=== PATIENT | female | born 1950 | race African-American/Black ===

== ENCOUNTER → 2017-06-30 | Outpatient (CLI) | payer OTHER ==
[2015-11-25 18:13] VITALS: BP 135/86
--- NOTE | 2017-06-30 16:03 | RAD ---
DATE: June 30, 2017 EXAM: DIGITAL SCREEN BILAT W/CAD HISTORY: Routine screening. COMPARISON: June 27, 2016. April 10, 2015. June 07, 2014. TECHNIQUE: 2D digital CC and MLO views of each breast were obtained. There is a repeat left MLO view. This study was interpreted with the benefit of Computerized Aided Detection (CAD). FINDINGS: The breast parenchyma is heterogeneously dense, category C, which may obscure small masses. There is an asymmetry in the outer left breast measuring 9 mm in size 5 cm from the nipple. This is a change from prior's. It has no definite correlate on the MLO views. There are a few scattered benign-appearing calcifications. Intraparenchymal lymph node in the upper outer right breast is stable. IMPRESSION: Asymmetry in the left breast for which compression view and ML view would be recommended. If the finding persists, rolled views or ultrasound may be required. BI-RADS CATEGORY: 0 INCOMPLETE: NEEDS ADDITIONAL IMAGING EVALUATION/COMPARISON WITH PRIOR STUDIES RECOMMENDED FOLLOW-UP: ADD ADDITIONAL IMAGING PQRS compliance statement: Patient information was entered into a reminder system with a target due date for the next mammogram. Mammography is a sensitive method for finding small breast cancers, but it does not detect them all and is not a substitute for careful clinical examination. A negative mammogram does not negate a clinically suspicious finding and should not result in delay in biopsying a clinically suspicious abnormality. "Our facility is accredited by the [employer] Mammography Program."
== END | disposition home or self-care (01) ==
LOC: MAMMO 14:12
PROVIDERS: ATTEND Internal Medicine Rheumatology
DX: Z12.31 Encounter for screening mammogram for malignant neoplasm of breast (principal)
CPT/HCPCS: G0202; 77067

== ENCOUNTER → 2017-07-01 | Outpatient (CLI) | payer OTHER ==
[2015-11-25 18:13] VITALS: BP 135/86
--- NOTE | 2017-07-01 14:57 | RAD ---
DATE: 07/01/2017 EXAM: DIGITAL DIAGNOSTIC LT, BREAST LEFT HISTORY: Suspicious screening study COMPARISON: 06/30/2017 This study was interpreted with the benefit of Computerized Aided Detection (CAD). The breast parenchyma is heterogeneously dense, which could reduce sensitivity of mammography. Breast parenchyma level C. FINDINGS: The screening study demonstrated a suspicious density laterally in the left breast on only the cc view. Spot compression views of that region in the CC projection fail to demonstrate a discrete nodule. The appearance on one view of the screening exam was likely due to to a summation of vascular and fibroglandular shadows. No mass is identified on the current straight mediolateral view. Left breast ultrasound, 06/30/2017: A targeted ultrasound exam of the lateral aspect of the left breast was performed. Heterogeneous fibroglandular shadows are present. No discrete breast mass is seen laterally. In the center of the breast in the retroareolar region not was made of a small oval-shaped hypoechoic nodule measuring 6.6 x 4.7 x 3.5 mm. Its margins are smooth. There are heterogeneous low level internal echoes. No internal color flow is seen. No definite posterior acoustic enhancement or shadowing is seen. This probably represents a small fibroadenoma or complicated cyst. No definite mammographic correlate is seen. IMPRESSION: 1. Additional views of the lateral left breast did not demonstrate a discrete mass. The appearance on the screening mammograms was probably a summation artifact. 2. The targeted ultrasound exam did demonstrate a tiny, probably benign retroareolar nodule near the midline. Follow-up left breast ultrasound in 6 months is suggested to establish stability. BI-RADS CATEGORY: 3 PROBABLY BENIGN FINDING(S)-SHORT INTERVAL FOLLOW-UP SUGGESTED RECOMMENDED FOLLOW-UP: 6M 6 MONTH FOLLOW-UP PQRS compliance statement: Patient information was entered into a reminder system with a target due date for the next mammogram. Mammography is a sensitive method for finding small breast cancers, but it does not detect them all and is not a substitute for careful clinical examination. A negative mammogram does not negate a clinically suspicious finding and should not result in delay in biopsying a clinically suspicious abnormality. "Our facility is accredited by the [employer] Mammography [employer]."
== END | disposition home or self-care (01) ==
LOC: MAMMO 13:19
PROVIDERS: ATTEND Family Medicine
DX: R92.8 Other abnormal and inconclusive findings on diagnostic imaging of breast (principal)
CPT/HCPCS: 76641; G0206; 77065

== ENCOUNTER → 2018-01-21 | Outpatient (CLI) | payer OTHER, MEDICARE | END | disposition home or self-care (01) | LOC: MAMMO 09:50 | DX: R92.8 Other abnormal and inconclusive findings on diagnostic imaging of breast (principal); I10 Essential (primary) hypertension | CPT/HCPCS: 76641 ==

== ENCOUNTER → 2018-11-29 | Outpatient (CLI) | payer MEDICARE, OTHER ==
[2015-11-25 18:13] VITALS: BP 135/86
--- NOTE | 2018-11-29 10:51 | RAD ---
DATE: 11/29/2018 EXAM: DIGITAL DIAGNOSTIC BILATERAL, BREAST LEFT HISTORY: Abnormal left breast ultrasound. COMPARISON: 06/07/2014, 06/27/2016, and 06/30/2017 mammographic exams. Limited left breast ultrasound exams 07/01/2017 and 01/21/2018. This study was interpreted with the benefit of Computerized Aided Detection (CAD). Breast Density: SCATTERED The breast parenchyma shows scattered fibroglandular densities. Breast parenchyma level B. FINDINGS: No new mass. No suspicious calcifications or distortion. Limited left breast ultrasound exam was performed. At the 6:00 retroareolar region, there is a well-circumscribed hypoechoic structure measuring 0.6 cm x 0.6 cm x 0.4 cm tall. This may represent a complex cyst. It is stable compared to prior exams. IMPRESSION: No new mammographic finding. Stable left breast ultrasound finding. Follow-up of the left breast ultrasound hypoechoic structure at the time of annual screening mammography in one year is recommended. BI-RADS CATEGORY: 3 PROBABLY BENIGN FINDING(S)-SHORT INTERVAL FOLLOW-UP SUGGESTED RECOMMENDED FOLLOW-UP: 12M 12 MONTH FOLLOW-UP PQRS compliance statement: Patient information was entered into a reminder system with a target due date in one year for the next mammogram. Mammography is a sensitive method for finding small breast cancers, but it does not detect them all and is not a substitute for careful clinical examination. A negative mammogram does not negate a clinically suspicious finding and should not result in delay in biopsying a clinically suspicious abnormality. "Our facility is accredited by the [employer] Mammography [employer]."
== END | disposition home or self-care (01) ==
LOC: MAMMO 09:01
PROVIDERS: ATTEND Family Medicine
DX: R92.8 Other abnormal and inconclusive findings on diagnostic imaging of breast (principal)
CPT/HCPCS: 76641; 77066

== ENCOUNTER → 2020-01-09 | Outpatient (CLI) | payer MEDICARE ==
[2015-11-25 18:13] VITALS: BP 135/86
--- NOTE | 2020-01-09 17:20 | RAD ---
DATE: 01/09/2020 8:01 AM EXAM: MAMMO CHARLES SCREENING BILATERAL, BREAST ultrasound LEFT HISTORY: Patient is due for bilateral mammographic screening but was recommended for short-term follow-up ultrasound of probably benign nodule in the left breast. COMPARISON: Bilateral mammograms of 11/29/2018, 06/30/2017 and 06/27/2016 along with a left diagnostic mammogram of 07/01/2017. Comparison also made to left breast ultrasounds of 11/29/2018 and 01/21/2018. TECHNIQUE: Bilateral CC and MLO views of the breasts were performed. Bilateral breast tomosynthesis was performed in CC and MLO projections. This study was interpreted with the benefit of Computerized Aided Detection (CAD). Targeted ultrasound of the inferior left breast was also performed as previously recommended. FINDINGS: Breast Density: SCATTERED The breast parenchyma shows scattered fibroglandular densities. Breast parenchyma level B Nodular parenchymal pattern with no dominant mass, architectural distortion or suspicious calcifications. Targeted ultrasound of the inferior left breast the area of previous sonographic interest reveals a sonographically benign parallel orientation oval hypoechoic 7 mm nodule with circumscribed margins and low-level internal echoes and no internal vascularity at the retroareolar 6:00 position, showing no significant interval change from the last breast ultrasound. IMPRESSION: No mammographic evidence of malignancy. BI-RADS CATEGORY: 2 BENIGN FINDING(S) RECOMMENDED FOLLOW-UP: 12M 12 MONTH FOLLOW-UP Annual screening mammography is recommended, unless clinically indicated sooner based on symptoms or change in physical exam. Discussed with patient. I also encouraged to maintain self breast awareness and promptly report any new or changing symptoms to her primary care physician for clinical assessment follow-up imaging if clinically indicated. Any clinically suspicious findings should be considered for biopsy in the absence of any imaging correlate. PQRS compliance statement: Patient information was entered into a reminder system with a target due date 01/09/2021 for the next mammogram. Mammography is a sensitive method for finding small breast cancers, but it does not detect them all and is not a substitute for careful clinical examination. A negative mammogram does not negate a clinically suspicious finding and should not result in delay in biopsying a clinically suspicious abnormality. "Our facility is accredited by the [employer] Mammography Program."
== END | disposition home or self-care (01) ==
LOC: MAMMO 07:59
PROVIDERS: ATTEND Family Medicine
DX: Z12.31 Encounter for screening mammogram for malignant neoplasm of breast (principal); N64.89 Other specified disorders of breast
CPT/HCPCS: 76641; 77063; 77067

== ENCOUNTER → 2021-02-18 | Outpatient (CLI) | payer MEDICARE ==
[2015-11-25 18:13] VITALS: BP 135/86
--- NOTE | 2021-02-18 10:16 | RAD ---
EXAM: Bilateral digital screening mammogram with tomosynthesis. HISTORY: 70-year-old female presents for screening mammography. TECHNIQUE: Full-field digital craniocaudal and mediolateral oblique 2D and 3D tomosynthesis images of both breasts are obtained for evaluation. Computer aided detection was applied. COMPARISON: 01/09/2020, 11/29/2018, 07/01/2017 BREAST PARENCHYMAL DENSITY: Level C - Heterogeneously dense. FINDINGS: There is no new suspicious mass, microcalcification or region of architectural distortion. There are multiple stable areas of asymmetry and nodularity within both breasts, allowing for differe nces in patient positioning. There are benign calcifications within the right greater than left breas t. IMPRESSION: BI-RADS Category 2: Benign finding(s). RECOMMENDATION: Annual mammography is recommended. If your mammogram demonstrates that you have dense breast tissue, which could hide abnormalities, and if you have other risk factors for breast cancer that have been identified, you might benefit from s upplemental screening tests that may be suggested by your ordering physician. Dense breast tissue, i n and of itself, is a relatively common condition. This information is not provided to cause undue c oncern, but rather to raise your awareness and to promote discussion with your physician regarding th e presence of other risk factors, in addition to dense breast tissue. A report of your mammography re sults will be sent to you and your physician. You should contact your physician if you have any ques tions or concerns regarding this report. Mammography is a sensitive method for finding small breast cancers, but it does not detect them all a nd is not a substitute for careful clinical examination. A negative mammogram does not negate a clin ically suspicious finding and should not result in delay in biopsying a clinically suspicious abnorma lity. PQRS compliance statement - Patient information was entered into a reminder system with a target due date for the next mammogram. "Our facility is accredited by the [employer] Mammography [employer]." Electronically signed by: Judith Garcia MD (02/18/2021 10:14 AM) [id number]
== END ==
LOC: MAMMO 09:27
PROVIDERS: ATTEND Family Medicine
DX: Z12.31 Encounter for screening mammogram for malignant neoplasm of breast (principal); R92.1 Mammographic calcification found on diagnostic imaging of breast
CPT/HCPCS: 77063; 77067